=== PATIENT | female | born 1950 | race Caucasian/White ===

== ENCOUNTER → 2017-09-08 09:02 | Outpatient (CLI) | payer BC, SELFPAY ==
--- NOTE | 2017-09-08 | DI.RAD.S_ITS ---
PROCEDURE: FL ABDOMEN 1V (BARIUM ENEMA) INDICATIONS: COLON CANCER SCREENING TECHNIQUE: One view of the abdomen acquired. COMPARISON: None. FINDINGS: Surgical changes and devices: None. Bowel: Bowel gas pattern is nonspecific but stool content is moderate over the left colon and sigmoid area. Soft tissues: No suspicious abdominal calcifications. Visualized solid organ contours appear normal in size. Bones: No suspicious bony lesions. IMPRESSION: The study was originally anticipated as a barium enema but stool is retained within the sigmoid colon and left colon. Additional bowel preparation will be performed. Dictated by: Toan Bo M.D. on 09/08/2017 at 10:09 Approved by: Toan Bo M.D. on 09/08/2017 at 10:11
== END ==
PROVIDERS: PCP Family Medicine; Visit Provider Family Medicine
DX: Z12.11 Encounter for screening for malignant neoplasm of colon (principal)
CPT/HCPCS: 74018

== ENCOUNTER → 2017-09-17 09:54 | Outpatient (CLI) | payer BC, SELFPAY ==
--- NOTE | 2017-09-17 | DI.RAD.S_ITS ---
PROCEDURE: FL BARIUM ENEMA W AIR CONTRAST INDICATIONS: COLON CANCER SCREENING COMPARISON: None. FINDINGS: KUB: Pre-procedural vegetable sorter film demonstrates a normal bowel gas pattern. No suspicious abdominal calcifications. Visualized solid organ contours are normal in size. No suspicious bony lesions. Colon: There is contrast opacification from the rectum to the cecum with subsequent insufflation with air. The colon is markedly patulous particularly the sigmoid colon which limited evaluation of the sigmoid itself and portions of the descending colon. No strictures, ulcers, polyps, or masses are seen. Haustral folds are normal in thickness throughout. No diverticula. IMPRESSION: No evidence of colonic obstruction, stricture or mass. The colon is markedly patulous particularly the sigmoid colon. Dictated by: Andriy Wise M.D. on 09/17/2017 at 13:40 Approved by: Andriy Wise M.D. on 09/17/2017 at 13:43
== END ==
PROVIDERS: PCP Family Medicine; Visit Provider Family Medicine
DX: Z12.11 Encounter for screening for malignant neoplasm of colon (principal)
CPT/HCPCS: 74280

== ENCOUNTER → 2020-05-14 11:08 | Outpatient (CLI) | payer BC, SELFPAY ==
[2020-05-14 12:50] LABS: Hemoglobin A1C% w Est Avg Glu 5.3 % (4.0-6.0)
[2020-05-14 13:00] LABS: Alanine Aminotransferase 21 IU/L (<35); Albumin 4.5 g/dL (3.5-5.0); Albumin Globulin Ratio 1.5 (1.0-2.8); Alkaline Phosphatase 37 U/L (38-126); Aspartate Aminotransferase 29 IU/L (14-36); BUN Creatinine Ratio 15.8 (6-22); Bilirubin Total 0.8 mg/dL (0.2-1.3); Blood Urea Nitrogen 12 mg/dL (7-17); Calcium 9.3 mg/dL (8.4-10.2); Carbon Dioxide 28 mmol/L (22-32); Chloride 100 mmol/L (98-107); Cholesterol 212 mg/dL (140-199); Estimated Glomerular Filt Rate > 60.0 mL/min (>60); Globulin 3.1 g/dL (1.7-4.1); Glucose 95 mg/dL (80-110); HDL Cholesterol 66 mg/dL (40-60); HEMOLYSIS < 15 (0-50); LDL Cholesterol Calculated 130 mg/dL (<100); Magnesium 2.2 mg/dL (1.6-2.3); Potassium 4.1 mmol/L (3.4-5.1); Sodium 133 mmol/L (137-145); Total Protein 7.6 g/dL (6.3-8.2); Triglycerides 79 mg/dL (35-150)
[2020-05-14 13:36] LABS: Thyroid Stimulating Hormone 2.48 uIU/mL (0.47-4.68)
== END ==
PROVIDERS: PCP Nurse Practitioner; Referring Provider Nurse Practitioner; Visit Provider Nurse Practitioner
DX: R00.2 Palpitations (principal); E03.9 Hypothyroidism, unspecified; E78.5 Hyperlipidemia, unspecified; Z79.899 Other long term (current) drug therapy
CPT/HCPCS: 36415; 80053; 80061; 83036; 83735; 84443

== ENCOUNTER → 2020-05-24 11:48 | Outpatient (CLI) | payer BC, SELFPAY ==
--- NOTE | 2020-06-19 08:50 | PM.CARDMON.1 ---
Line Service Technician Report Referral & Results Date Patient Seen: 05/24/20 Requesting provider: Julienne Peacock Indication: Palpitations Duration of monitoring (days): 14 Diary information: There were a patient diary entries and 8 patient triggered events Patient triggered events were associated with (within 45 seconds) sinus rhythm, PACs, PVCs, and SVT Patient diary events were associated with (within 45 seconds) sinus rhythm, PACs, and SVT Data: Minimum heart rate was 50 beats per minute at 04:45 on 06/01/2020 Maximum sinus heart rate was 126 beats per minute at 12:06 on 06/03/2020 Maximum overall heart rate was 167 beats per minute at 11:38 on 06/03/2020 during a 15.1 second run of SVT Less than 1% of identified beats or either ventricular supraventricular ectopic in origin There were 27 runs of SVT the fastest being the 15.1 sec run at above rate of 167 beats per minute, the longest lasting 47.3 seconds. Some of these identified runs of SVT may well be atrial tachycardia with variable block Impression: 14 day cardiac specialist showing rare and brief runs of SVT as above Patient also with rare PVCs and PACs No other significant dysrhythmias identified on this study, and no clear correlation between anyone particular dysrhythmia patient's sense of palpitations was identified on this study given patient events were associated with 4 different rhythms, clinical correlation suggested
== END ==
PROVIDERS: PCP Nurse Practitioner; Referring Provider Nurse Practitioner; Visit Provider Nurse Practitioner
DX: R00.2 Palpitations (principal); R42 Dizziness and giddiness
CPT/HCPCS: 93246; 93248

== ENCOUNTER → 2020-06-11 12:14 | Outpatient (CLI) | payer BC, SELFPAY ==
[2020-06-12 18:51] LABS: Fecal Immunochemical Test Negative (Negative)
== END ==
PROVIDERS: PCP Nurse Practitioner; Referring Provider Nurse Practitioner; Visit Provider Nurse Practitioner
DX: Z12.11 Encounter for screening for malignant neoplasm of colon (principal)
CPT/HCPCS: 82274

== ENCOUNTER → 2020-06-11 12:24 | Outpatient (CLI) | payer BC, SELFPAY ==
--- NOTE | 2020-06-11 12:24 | DI.MG.S_ITS ---
BILATERAL DIGITAL SCREENING MAMMOGRAM 3D/2D WITH CAD: 06/11/2020 CLINICAL: Routine screening. Comparison is made to exams dated: 03/19/2018 mammogram, 02/23/2018 mammogram, and 01/26/2017 mammogram - outside location. The tissue of both breasts is heterogeneously dense. This may lower the sensitivity of mammography. Current study was also evaluated with a Computer Aided Detection (CAD) system. No significant masses, calcifications, or other findings are seen in either breast. There has been no significant interval change. IMPRESSION: NEGATIVE There is no mammographic evidence of malignancy. A 1 year screening mammogram is recommended. This exam was interpreted at Station ID: [id number]. NOTE: For mammograms, a report in lay terms will be sent to the patient. Approximately 15% of breast malignancies will not be visualized mammographically. In the management of a palpable breast mass, a negative mammogram must not discourage biopsy of a clinically suspicious lesion. Electronically Signed By: Leon chamberlain/maikel:06/11/2020 14:10:52 letter sent: Normal Exam ACR BI-RADS Category 1: Negative 3341F
== END ==
PROVIDERS: PCP Nurse Practitioner; Referring Provider Nurse Practitioner; Visit Provider Nurse Practitioner
DX: Z12.31 Encounter for screening mammogram for malignant neoplasm of breast (principal); Z13.820 Encounter for screening for osteoporosis; M85.88 Other specified disorders of bone density and structure, other site; Z78.0 Asymptomatic menopausal state; E03.9 Hypothyroidism, unspecified; E78.5 Hyperlipidemia, unspecified; R00.2 Palpitations; Z79.899 Other long term (current) drug therapy; Z82.62 Family history of osteoporosis
CPT/HCPCS: 77063; 77067; 77080

== ENCOUNTER → 2021-05-31 11:15 | Outpatient (CLI) | payer BC, SELFPAY ==
[2021-05-31 14:40] LABS: Thyroid Stimulating Hormone 0.098 uIU/mL (0.47-4.68)
== END ==
PROVIDERS: PCP Nurse Practitioner; Referring Provider Nurse Practitioner; Visit Provider Nurse Practitioner
DX: E03.9 Hypothyroidism, unspecified (principal)
CPT/HCPCS: 36415; 84443

== ENCOUNTER → 2021-06-18 10:27 | Outpatient (CLI) | payer BC, SELFPAY ==
--- NOTE | 2021-06-18 | DI.MG.S_ITS ---
BILATERAL DIGITAL SCREENING MAMMOGRAM 3D/2D WITH CAD: 06/18/2021 CLINICAL: Routine screening. Family history of breast cancer. Comparison is made to exams dated: 06/11/2020 mammogram - [facility], 03/19/2018 mammogram, 02/23/2018 mammogram, and 01/26/2017 mammogram - outside location. The tissue of both breasts is heterogeneously dense. This may lower the sensitivity of mammography. Current study was also evaluated with a Computer Aided Detection (CAD) system. No significant masses, calcifications, or other findings are seen in either breast. There has been no significant interval change. IMPRESSION: NEGATIVE There is no mammographic evidence of malignancy. A 1 year screening mammogram is recommended. This exam was interpreted at Station ID: [id number]. NOTE: For mammograms, a report in lay terms will be sent to the patient. Approximately 15% of breast malignancies will not be visualized mammographically. In the management of a palpable breast mass, a negative mammogram must not discourage biopsy of a clinically suspicious lesion. Electronically Signed By: Jonathon chamberlain/maikel:06/18/2021 12:57:33 letter sent: Normal Exam ACR BI-RADS Category 1: Negative 3341F
== END ==
PROVIDERS: PCP Nurse Practitioner; Referring Provider Nurse Practitioner; Visit Provider Nurse Practitioner
DX: Z12.31 Encounter for screening mammogram for malignant neoplasm of breast (principal); Z80.3 Family history of malignant neoplasm of breast
CPT/HCPCS: 77063; 77067

== ENCOUNTER → 2021-08-15 10:46 | Outpatient (CLI) | payer BC, SELFPAY ==
[2021-08-15 12:40] LABS: Thyroid Stimulating Hormone 2.72 uIU/mL (0.47-4.68)
== END ==
PROVIDERS: PCP Nurse Practitioner; Referring Provider Nurse Practitioner; Visit Provider Nurse Practitioner
DX: E03.9 Hypothyroidism, unspecified (principal)
CPT/HCPCS: 36415; 84443

== ENCOUNTER → 2022-01-15 10:36 | Outpatient (CLI) | payer BC, SELFPAY | PROVIDERS: PCP Nurse Practitioner; Referring Provider Nurse Practitioner; Visit Provider Nurse Practitioner | DX: E03.9 Hypothyroidism, unspecified (principal) | CPT/HCPCS: 36415; 84443 ==

== ENCOUNTER → 2022-02-21 11:55 | Outpatient (CLI) | payer BC, SELFPAY | PROVIDERS: PCP Nurse Practitioner; Referring Provider Nurse Practitioner; Visit Provider Nurse Practitioner | DX: M85.852 Other specified disorders of bone density and structure, left thigh (principal); Z78.0 Asymptomatic menopausal state | CPT/HCPCS: 77080 ==

== ENCOUNTER → 2022-05-15 08:35 | Outpatient (CLI) | payer BC, SELFPAY ==
[2022-05-15 09:29] LABS: Alanine Aminotransferase 21 IU/L (<35); Albumin 4.3 g/dL (3.5-5.0); Albumin Globulin Ratio 1.5 (1.0-2.8); Alkaline Phosphatase 47 U/L (38-126); Aspartate Aminotransferase 26 IU/L (14-36); BUN Creatinine Ratio 12.3 (6-22); Bilirubin Total 0.8 mg/dL (0.2-1.3); Blood Urea Nitrogen 9 mg/dL (7-17); Calcium 8.7 mg/dL (8.4-10.2); Carbon Dioxide 23 mmol/L (22-32); Chloride 101 mmol/L (98-107); Cholesterol 180 mg/dL (140-199); Estimated Glomerular Filt Rate > 60 mL/min (>60); Globulin 2.8 g/dL (1.7-4.1); Glucose 92 mg/dL (80-110); HDL Cholesterol 72 mg/dL (40-60); HEMOLYSIS < 15 (0-50); LDL Cholesterol Calculated 85 mg/dL (<100); Potassium 4.1 mmol/L (3.4-5.1); Sodium 135 mmol/L (137-145); Total Protein 7.1 g/dL (6.3-8.2); Triglycerides 115 mg/dL (35-150)
[2022-05-15 10:01] LABS: Thyroid Stimulating Hormone 2.23 uIU/mL (0.47-4.68)
[2022-05-15 16:29] LABS: Hep C Virus Ab w/Reflex Quant NEGATIVE s/c (NEGATIVE)
== END ==
PROVIDERS: PCP Nurse Practitioner; Referring Provider Nurse Practitioner; Visit Provider Nurse Practitioner
DX: Z11.59 Encounter for screening for other viral diseases (principal); E78.2 Mixed hyperlipidemia; R00.2 Palpitations; Z79.899 Other long term (current) drug therapy; E03.9 Hypothyroidism, unspecified
CPT/HCPCS: 36415; 80053; 80061; 84443; 86803

== ENCOUNTER → 2022-06-27 13:40 | Outpatient (CLI) | payer BC, SELFPAY ==
--- NOTE | 2022-06-27 13:41 | DI.MG.S_ITS ---
BILATERAL DIGITAL SCREENING MAMMOGRAM 3D/2D WITH CAD: 06/27/2022 CLINICAL: Routine screening. Family history of breast cancer. Comparison is made to exams dated: 06/18/2021 mammogram, 06/11/2020 mammogram - [facility], and 03/19/2018 mammogram - outside location. Both breasts are heterogeneously dense, which may obscure small masses (category c / 51-75% glandular tissue). Current study was also evaluated with a Computer Aided Detection (CAD) system. No significant masses, calcifications, or other findings are seen in either breast. There has been no significant interval change. IMPRESSION: NEGATIVE There is no mammographic evidence of malignancy. A 1 year screening mammogram is recommended. Based on the Tyrer Cuzick model (a risk assessment model) the patient's lifetime risk is 5.2% and her 10 year risk is 3.5%. According to the ACR, ACS, and NCCN guidelines, an annual breast MRI exam along with mammogram is recommended if the patient's lifetime risk is 20% or greater. This exam was interpreted at Station ID: [id number]. NOTE: For mammograms, a report in lay terms will be sent to the patient. Approximately 15% of breast malignancies will not be visualized mammographically. In the management of a palpable breast mass, a negative mammogram must not discourage biopsy of a clinically suspicious lesion. Electronically Signed By: Carlyn lyon/maikel:06/27/2022 17:47:04 letter sent: Normal Exam ACR BI-RADS Category 1: Negative 3341F
== END ==
PROVIDERS: PCP Nurse Practitioner; Referring Provider Nurse Practitioner; Visit Provider Nurse Practitioner
DX: Z12.31 Encounter for screening mammogram for malignant neoplasm of breast (principal)
CPT/HCPCS: 77063; 77067

== ENCOUNTER 2022-09-30 08:25 | Day surgery (SDC) | payer BC, SELFPAY ==
[2022-09-30 08:49] VITALS: BP 165/90; PULSE 70; RESP 18; TEMP 36.7; O2SAT 99; BMI 27.4
[2022-09-30] MEDS: LACTATED RINGERS 1,000 ML 200 ML IV (09:01)
--- NOTE | 2022-09-30 10:06 | P.HP_ITS ---
History of Present Illness History of Present Illness Date Patient Seen: 09/30/22 Time Patient Seen: 10:06 Chief complaint: Screening Colonoscopy Narrative: 72-year-old woman personal history of colonic polyps and a family history of colon cancer in her mother who is here for screening colonoscopy. Unclear as to the date of her last colonoscopy perhaps about 5 years ago. No abdominal pain unintentional weight loss nausea vomiting blood per rectum. [facility] Medical History (Updated 09/30/22 @ 10:07 by Riccardo Gordon MD) Abnormal Pap smear of cervix (~1994) Allergies Anemia Basal cell carcinoma of skin (~2018) Colon polyp (~1999) Elevated blood pressure reading in office with white coat syndrome, without diagnosis of hypertension Headache Hemorrhoids Hypothyroidism (~1999) Migraine (~1989) Osteopenia (~2017) Palpitations Postmenopausal Tinnitus (~1994) Family History Father Heart disease Hyperlipidemia Dementia Mother Cancer Hypertension Alzheimer disease Heart disease Sister Arthritis Sister Heart disease Hyperlipidemia Social History marital status: household members: spouse pets and animals: No education level: master's degree occupational status: other Previous occupational history: [employer],Teacher travel history: recurrent leisure activities: reading and other other: Gardening, Hiking, Crafts. Using eliptical & weights seatbelt use: always working smoke detector in home: Yes fire extinguisher in home: Yes carbon monox detector in home: Yes firearms in home: No do you feel safe at home: Yes Smoking Status: Never smoker alcohol intake: current during the past year weight has: decreased > 10 lbs well-balanced diet: daily or most days daily servings fruits/ve-4 caffeine: No eating out: rarely or never Type(s) of exercise: weight lifting and yoga frequency: daily duration: 15-30 minutes/day additional social history: Poor night vision Tinnitus Meds Home Medications and Allergies Home Medications Medication Instructions Recorded Confirmed Type calcium carbonate 400 mg calcium 800 mg PO DAILY 05/14/20 09/30/22 History (1,000 mg) chewable tablet (Tums Ultra) cholecalciferol (vitamin D3) 25 25 mcg PO DAILY 05/14/20 09/30/22 History mcg (1,000 unit) capsule coenzyme Q10 200 mg capsule 200 mg PO DAILY 05/14/20 09/30/22 History lsyhrptadbkh-Zn-iqcz-minerals 18 1 tab PO .QD 05/14/20 09/30/22 History mg-0.4 mg tablet L.acidoph, paracasei,B. lactis 10 1 cell PO DAILY 08/20/21 09/30/22 History billion cell capsule (Digestive Advantage Advanced Probiotic) biotin 5,000 mcg sublingual tablet 5,000 mcg sublingual DAILY 08/20/21 09/30/22 History estradiol 0.01% (0.1 mg/gram) 1 g vaginal 2XW #42.5 grams 07/22/22 09/30/22 Rx vaginal cream levothyroxine 50 mcg tablet 50 mcg PO DAILY #90 tabs 07/22/22 09/30/22 Rx simvastatin 40 mg tablet See Rx Instructions .Route 07/22/22 09/30/22 Rx .COMPLEX #90 tabs Allergies Allergy/AdvReac Type Severity Reaction Status Date / Time No Known Drug Allergies Allergy Verified 09/26/22 08:16 Exam Vital Signs (past 8 hours): - 09/30/22 08:49 Temperature 98.1 F Pulse Rate 70 Respiratory Rate 18 Blood Pressure 165/90 H Pulse Oximetry 99 Oxygen Delivery Method Room Air Oxygen Delivery Method Room Air Narrative Exam Narrative: General adult woman alert oriented no acute distress Chest nonlabored respiration Extremities warm well perfused Assessment & Plan Assessment and plan (1) Colon polyp: Status: Acute (2) Family history of colon cancer: Status: Acute Assessment & Plan narrative: 72-year-old woman personal history of colonic polyps and a family history of colon cancer here for screening colonoscopy. Technical details were discussed. Risks, benefits, alternatives explained. Risks including but not limited to myocardial infarction, aspiration, bleeding, pain, missed lesion, incomplete examination, need for further radiographic studies, colonic perforation, and need for major abdominal surgery were discussed. All questions were answered to their satisfaction, and they are in agreement with this plan.
--- NOTE | 2022-09-30 10:09 | PM.OP.COLON ---
Operative Date/Time/Diagnoses Date of procedure: 09/30/22 Time of procedure: 10:09 Pre-op diagnosis: Abdominal pain Positive fecal immunochemical test Post-op diagnosis: other (Colonic polyp x1, internal hemorrhoids) Procedure & Clinicians Study performed: Colonoscopy and polypectomy Same procedure as scheduled: Yes Indications: Abdominal pain unknown etiology, positive fecal immunochemical test Surgeon: Riccardo Gordon Procedure Notes Procedure in detail: The history and physical was performed/updated and the patient is ASA class is 3. The procedure was discussed in detail with the patient. Potential risks complications including infection, bleeding, missed diagnosis, perforation, need for surgery, and were explained. Their questions were answered and informed consent was obtained. Patient was brought to the procedure room and placed standard monitoring equipment. The patient's vital signs were monitored continuously throughout the entire procedure. Prior to starting time-out was performed. The patient was placed in the left lateral recumbent position. Procedural sedation was administered by anesthesia. Examination began with a thorough inspection of the perianal area there was no evidence of fissures, fistulae, external hemorrhoids or cutaneous malignancy. The colonoscopy scope was then placed into the anal canal and was advanced to the cecum, which was identified by the ileocecal valve, the appendiceal orifice and the confluence of the taenia. The scope was then slowly withdrawn examining colon thoroughly in all directions, irrigating it of any residual stool. Transverse colon-5 mm polyp removed in its entirety with biopsy forceps. Sigmoid colon-moderate diverticulosis Rectum-grade 2 internal hemorrhoids on retroflexion. The patient tolerated the procedure well. They will be discharged once criteria are met. The prep was of good/excellent quality. The withdrawl time was 7 minutes. Specimen(s): other (Transverse polyp) Impression: Colonic polyp x1 Post-procedure Recommendations: High fiber diet Plan for aftercare: Follow-up is dependent on pathology findings Disposition: same day surgery
--- NOTE | 2022-09-30 10:14 | PM.OP.COLON ---
Operative Date/Time/Diagnoses Date of procedure: 09/30/22 Time of procedure: 10:15 Pre-op diagnosis: Family history of colon cancer Personal history of colonic polyps Post-op diagnosis: same Procedure & Clinicians Study performed: Sigmoidoscopy. Same procedure as scheduled: Yes Indications: Personal history of colonic polyps Family history colon cancer Surgeon: Riccardo Gordon Procedure Notes Procedure in detail: The history and physical was performed/updated and the patient is ASA class is 2. The procedure was discussed in detail with the patient. Potential risks complications including infection, bleeding, missed diagnosis, perforation, need for surgery, and were explained. Their questions were answered and informed consent was obtained. Patient was brought to the procedure room and placed standard monitoring equipment. The patient's vital signs were monitored continuously throughout the entire procedure. Prior to starting time-out was performed. The patient was placed in the left lateral recumbent position. Procedural sedation was administered by anesthesia. Examination began with a thorough inspection of the perianal area there was no evidence of fissures, fistulae, external hemorrhoids or cutaneous malignancy. The colonoscopy scope was then placed into the anal canal and was advanced forward. We reached the level of the transverse colon but could not advance into the ascending colon. Despite external pressure stiffening of the scope repositioning the scope could not be safely advanced secondary to the tortuosity of the colon. The scope was then slowly withdrawn examining colon thoroughly in all directions, irrigating it of any residual stool. Within the examined portion of the colon no masses or polyps were identified. The patient tolerated the procedure well. They will be discharged once criteria are met. The prep was of good/excellent quality. Specimen(s): none sent Impression: Tortuous colon. Normal colonoscopy to the level of the transverse colon but the ascending colon was not evaluated secondary to tortuosity. Post-procedure Recommendations: Colonoscopy in 5 years Plan for aftercare: Barium enema Disposition: same day surgery
[2022-09-30 10:47] VITALS: BP 124/78; PULSE 59; RESP 14; TEMP 36.9; O2SAT 96
[2022-09-30 10:53] VITALS: BP 128/84; PULSE 65; RESP 19; TEMP 36.9; O2SAT 97
[2022-09-30 10:58] VITALS: BP 145/89; PULSE 65; RESP 15; TEMP 36.8; O2SAT 97
[2022-09-30 11:06] VITALS: BP 144/88; PULSE 65; RESP 16; TEMP 36.7; O2SAT 97
== END 2022-09-30 11:10 | disposition home or self-care (01) ==
PROVIDERS: PCP Nurse Practitioner; Referring Provider Surgery; Visit Provider Surgery
PROC: 0DJD8ZZ Inspection of Lower Intestinal Tract, Via Natural or Artificial Opening Endoscopic (ICD-10-PCS; CPT 45378; principal; 2022-09-30 09:45)
DX: Z12.11 Encounter for screening for malignant neoplasm of colon (principal); Z86.010 Personal history of colon polyps; Z80.0 Family history of malignant neoplasm of digestive organs; K64.1 Second degree hemorrhoids; K57.30 Diverticulosis of large intestine without perforation or abscess without bleeding; Z53.09 Procedure and treatment not carried out because of other contraindication
CPT/HCPCS: 45380; J2250; J3010

== ENCOUNTER → 2022-11-05 07:34 | Outpatient (CLI) | payer BC, SELFPAY ==
--- NOTE | 2022-11-05 07:36 | DI.RAD.S_ITS ---
PROCEDURE: FL BARIUM ENEMA W AIR CONTRAST INDICATIONS: POLYP OF COLON COMPARISON: [facility], , [place] BARIUM ENEMA W AIR CONTRAST, 09/17/2017, 9:59. FINDINGS: KUB: Pre-procedural urgent care physician assistant film demonstrates a normal bowel gas pattern. No suspicious abdominal calcifications. Visualized solid organ contours are normal in size. No suspicious bony lesions. Colon: There is adequate air-contrast opacification from the rectum to the mid transverse colon. Opacification of the proximal transverse and ascending colon could not be achieved despite numerous attempts. No strictures, ulcers, polyps, or masses are seen. Haustral folds are normal in thickness throughout. No diverticula. IMPRESSION: 1. Incomplete barium enema without opacification of the cecum, ascending colon, or proximal transverse colon despite multiple attempts. 2. No radiographic evidence of colonic obstruction, stricture, or mass within the opacified portions of the colon, distal to the mid transverse colon. 3. Colon is redundant. Approved by: Dustin Howard M.D. on 11/05/2022 at 11:59
== END ==
PROVIDERS: PCP Nurse Practitioner; Referring Provider Surgery; Visit Provider Surgery
DX: K63.5 Polyp of colon (principal); Z80.0 Family history of malignant neoplasm of digestive organs
CPT/HCPCS: 74280

== ENCOUNTER → 2023-07-21 12:18 | Outpatient (CLI) | payer BC, SELFPAY ==
--- NOTE | 2023-07-21 | DI.MG.S_ITS ---
BILATERAL DIGITAL SCREENING MAMMOGRAM 3D/2D WITH CAD: 07/21/2023 CLINICAL: Routine screening. Family history of breast cancer. Comparison is made to exams dated: 06/27/2022 mammogram, 06/18/2021 mammogram, and 06/11/2020 mammogram - [facility]. Both breasts are heterogeneously dense, which may obscure small masses (category c / 51-75% glandular tissue). Current study was also evaluated with a Computer Aided Detection (CAD) system. No significant masses, calcifications, or other findings are seen in either breast. There has been no significant interval change. IMPRESSION: NEGATIVE There is no mammographic evidence of malignancy. A 1 year screening mammogram is recommended. Based on the Tyrer Cuzick model (a risk assessment model) the patient's lifetime risk is 4.9% and her 10 year risk is 3.6%. According to the ACR, ACS, and NCCN guidelines, an annual breast MRI exam along with mammogram is recommended if the patient's lifetime risk is 20% or greater. This exam was interpreted at Station ID: [id number]. NOTE: For mammograms, a report in lay terms will be sent to the patient. Approximately 15% of breast malignancies will not be visualized mammographically. In the management of a palpable breast mass, a negative mammogram must not discourage biopsy of a clinically suspicious lesion. Electronically Signed By: Carlyn lyon/maikel:07/21/2023 16:33:11 letter sent: Normal Exam ACR BI-RADS Category 1: Negative 3341F
== END ==
LOC: MAMMO 12:18
PROVIDERS: PCP Nurse Practitioner; Referring Provider Nurse Practitioner; Visit Provider Nurse Practitioner
DX: Z12.31 Encounter for screening mammogram for malignant neoplasm of breast (principal); Z80.3 Family history of malignant neoplasm of breast; R92.333 Mammographic heterogeneous density, bilateral breasts
CPT/HCPCS: 77063; 77067

== ENCOUNTER → 2023-10-27 08:54 | Outpatient (CLI) | payer BC, SELFPAY ==
[2023-10-27 11:03] LABS: Alanine Aminotransferase 33 IU/L (<35); Albumin 4.1 g/dL (3.5-5.0); Albumin Globulin Ratio 1.2 (1.0-2.8); Alkaline Phosphatase 49 U/L (38-126); Aspartate Aminotransferase 40 IU/L (14-36); Bilirubin Total 0.7 mg/dL (0.2-1.3); Blood Urea Nitrogen 9 mg/dL (7-17); Calcium 8.6 mg/dL (8.4-10.2); Carbon Dioxide 23 mmol/L (22-32); Chloride 98 mmol/L (98-107); Cholesterol 161 mg/dL (140-199); Estimated Glomerular Filt Rate > 60 mL/min (>60); Globulin 3.3 g/dL (1.7-4.1); Glucose 89 mg/dL (80-110); HDL Cholesterol 70 mg/dL (40-60); HEMOLYSIS < 15 (0-50); LDL Cholesterol Calculated 81 mg/dL (<100); Potassium 4.1 mmol/L (3.4-5.1); Sodium 128 mmol/L (137-145); Total Protein 7.4 g/dL (6.3-8.2); Triglycerides 51 mg/dL (35-150)
[2023-10-27 11:44] LABS: Thyroid Stimulating Hormone 4.13 uIU/mL (0.47-4.68)
== END ==
PROVIDERS: PCP Nurse Practitioner; Referring Provider Nurse Practitioner; Visit Provider Nurse Practitioner
DX: E78.2 Mixed hyperlipidemia (principal); M85.80 Other specified disorders of bone density and structure, unspecified site; E03.9 Hypothyroidism, unspecified; Z79.899 Other long term (current) drug therapy
CPT/HCPCS: 36415; 80053; 80061; 84443

== ENCOUNTER → 2024-02-19 09:40 | Outpatient (CLI) | payer BC, SELFPAY ==
[2024-02-19 11:01] LABS: Hematocrit 34.3 % (36-46); Hemoglobin 11.9 g/dL (12.0-16.0); Mean Corpuscular HGB Conc 34.6 % (30-36); Mean Corpuscular Hemoglobin 31.6 PG (26-34); Mean Corpuscular Volume 91.4 fL (80-100); Platelet Count 363 X10^3/uL (150-400); Red Blood Cell Count 3.76 X10^6/uL (4.0-5.2); Red Cell Distribution Width 12.7 % (11.6-14.8); White Blood Cell Count 6.1 X10^3/uL (4.5-11.0)
[2024-02-19 11:32] LABS: Cholesterol 187 mg/dL (140-199); HDL Cholesterol 73 mg/dL (40-60); LDL Cholesterol Calculated 100 mg/dL (<100); Triglycerides 69 mg/dL (35-150)
== END ==
LOC: LAB 09:41
PROVIDERS: Nurse Practitioner; PCP Internal Medicine; Referring Provider Internal Medicine; Visit Provider Internal Medicine
DX: E78.2 Mixed hyperlipidemia (principal)
CPT/HCPCS: 36415; 80061; 85027

== ENCOUNTER → 2024-02-25 14:45 | Outpatient (CLI) | payer BC, SELFPAY ==
--- NOTE | 2024-02-25 14:48 | DI.RAD.S_ITS ---
PROCEDURE: XR CHEST 2V INDICATIONS: cough TECHNIQUE: 2 views of the chest were acquired. COMPARISON: None. FINDINGS: Heart, mediastinum and pulmonary vascular: Heart is normal in size and configuration. Mediastinum is unremarkable. Pulmonary vascular is normal. Lungs: Clear Pleural spaces: Normal-no effusions or pneumothorax. Bones and soft tissues: Moderate degenerative disc disease seen throughout the mid lower thoracic spine IMPRESSION: No cardiopulmonary disease. Dictated by: Sukhjinder Soto M.D. on 02/26/2024 at 7:38 Approved by: Sukhjinder Soto M.D. on 02/26/2024 at 7:39
== END ==
LOC: RAD 14:47
PROVIDERS: PCP Internal Medicine; Referring Provider Internal Medicine; Visit Provider Internal Medicine
DX: R05.9 Cough, unspecified (principal); M51.34 Other intervertebral disc degeneration, thoracic region
CPT/HCPCS: 71046

== ENCOUNTER → 2024-05-07 09:27 | Outpatient (CLI) | payer BC, SELFPAY ==
[2024-05-07 10:52] LABS: Add Manual Diff / Slide Review NO; Basophils Absolute Auto 0 /uL (0-100); Basophils Percent Auto 0.7 % (0-2); Eosinophils Absolute Auto 100 /uL (0-450); Hematocrit 36.3 % (36-46); Hemoglobin 12.4 g/dL (12.0-16.0); Lymphocytes Absolute Auto 1200 /uL (1100-4500); Lymphocytes Percent Auto 22.5 % (25-40); Mean Corpuscular HGB Conc 34.3 % (30-36); Mean Corpuscular Hemoglobin 31.9 PG (26-34); Monocytes Absolute Auto 400 /uL (0-900); Neutrophils Absolute Auto 3600 /uL (1500-7000); Neutrophils Percent Auto 67.8 % (50-75); Platelet Count 348 X10^3/uL (150-400); Red Cell Distribution Width 12.7 % (11.6-14.8); White Blood Cell Count 5.3 X10^3/uL (4.5-11.0)
[2024-05-07 11:05] LABS: HEMOLYSIS < 15 (0-50); Iron 108 ug/dL (37-170)
[2024-05-07 11:07] LABS: Alanine Aminotransferase 26 IU/L (<35); Albumin 4.6 g/dL (3.5-5.0); Albumin Globulin Ratio 1.5 (1.0-2.8); Alkaline Phosphatase 47 U/L (38-126); Aspartate Aminotransferase 34 IU/L (14-36); BUN Creatinine Ratio 13.3 (6-22); Bilirubin Total 1.1 mg/dL (0.2-1.3); Blood Urea Nitrogen 12 mg/dL (7-17); Calcium 9.5 mg/dL (8.4-10.2); Carbon Dioxide 24 mmol/L (22-32); Chloride 102 mmol/L (98-107); Estimated Glomerular Filt Rate > 60 mL/min (>60); Globulin 3.1 g/dL (1.7-4.1); Glucose 94 mg/dL (80-110); HEMOLYSIS < 15 (0-50); Potassium 4.6 mmol/L (3.4-5.1); Sodium 134 mmol/L (137-145); Total Protein 7.7 g/dL (6.3-8.2)
[2024-05-07 11:20] LABS: Percent Iron Saturation 44 % (15-50); Total Iron Binding Capacity 247 ug/dL (265-497); Transferrin 235 mg/dL (206-381)
[2024-05-07 12:13] LABS: Folate 19.1 ng/mL (2.76-20.0); Vitamin B12 277 pg/mL (239-931)
== END ==
PROVIDERS: PCP Internal Medicine; Referring Provider Internal Medicine; Visit Provider Internal Medicine
DX: D64.9 Anemia, unspecified (principal); E78.2 Mixed hyperlipidemia; I10 Essential (primary) hypertension
CPT/HCPCS: 36415; 80053; 82607; 82746; 83540; 83550; 85025

== ENCOUNTER → 2024-07-19 09:22 | Outpatient (CLI) | payer BC, SELFPAY ==
[2024-07-19 10:16] LABS: Cholesterol 270 mg/dL (140-199); HDL Cholesterol 65 mg/dL (40-60); LDL Cholesterol Calculated 184 mg/dL (<100); Triglycerides 103 mg/dL (35-150)
[2024-07-19 10:33] LABS: Free T4, Direct Thyroxine 1.99 ng/dL (0.78-2.19)
[2024-07-19 10:46] LABS: Thyroid Stimulating Hormone 3.18 uIU/mL (0.47-4.68)
== END ==
PROVIDERS: PCP Internal Medicine; Referring Provider Internal Medicine; Visit Provider Internal Medicine
DX: I10 Essential (primary) hypertension (principal); E78.2 Mixed hyperlipidemia; E03.9 Hypothyroidism, unspecified
CPT/HCPCS: 36415; 80061; 84439; 84443

== ENCOUNTER → 2024-08-17 12:29 | Outpatient (CLI) | payer BC, SELFPAY ==
--- NOTE | 2024-08-17 12:31 | DI.MG.S_ITS ---
MM screening mammo BI: 08/17/2024. BI-RADS: 1 CLINICAL: 74-year old female for bilateral screening mammogram. Tyrer-Cuzick lifetime risk of 9.4%. Current reported family history of breast cancer: mother. PRIOR EXAMS 07/21/2023, 06/27/2022, 06/18/2021, 06/11/2020. MAMMOGRAPHY TECHNIQUE: 2D and 3D (tomosynthesis) digital mammographic views obtained, with additional images as needed for full coverage. Current study was also evaluated with a Computer Aided Detection (CAD) system. DENSITY C. The breasts are heterogeneously dense, which may obscure small masses. MAMMOGRAPHY FINDINGS Bilateral: No suspicious mass, asymmetry, microcalcification, or other abnormality seen. No significant change from comparison. IMPRESSION: * No evidence of malignancy. RECOMMENDATIONS Bilateral * Annual screening mammography. OVERALL ASSESSMENT CATEGORY BI-RADS-1: Negative. The [employer] recommends annual screening mammography beginning at age 40 for women with average risk of breast cancer. ELECTRONICALLY SIGNED: Carlyn Pat M.D. on 08/17/2024 at 04:12:56 PM PT Interpreting Station ID: [id number]
== END ==
PROVIDERS: PCP Internal Medicine; Referring Provider Internal Medicine; Visit Provider Internal Medicine
DX: Z12.31 Encounter for screening mammogram for malignant neoplasm of breast (principal); R92.333 Mammographic heterogeneous density, bilateral breasts; Z80.3 Family history of malignant neoplasm of breast
CPT/HCPCS: 77063; 77067

== ENCOUNTER → 2024-12-13 11:13 | Outpatient (CLI) | payer BC, SELFPAY | LOC: RESP 11:14 | PROVIDERS: PCP Internal Medicine; Referring Provider Internal Medicine; Visit Provider Internal Medicine | DX: R05.9 Cough, unspecified (principal) | CPT/HCPCS: 94060; 94726; 94729 ==

== ENCOUNTER → 2025-03-24 09:46 | Outpatient (CLI) | payer BC, SELFPAY ==
[2025-03-24 11:03] LABS: Alanine Aminotransferase 23 IU/L (<35); Albumin 4.6 g/dL (3.5-5.0); Albumin Globulin Ratio 1.6 (1.0-2.8); Alkaline Phosphatase 55 U/L (38-126); Globulin 2.9 g/dL (1.7-4.1); HEMOLYSIS < 15 (0-50); Total Protein 7.5 g/dL (6.3-8.2)
== END ==
PROVIDERS: PCP Internal Medicine; Referring Provider Physician Assistant Medical; Visit Provider Physician Assistant Medical
DX: B35.1 Tinea unguium (principal)
CPT/HCPCS: 36415; 80076